=== PATIENT | female | born 1990 | race Two or more races ===

== ENCOUNTER 2018-11-21 13:05 | Emergency (ER) | payer OTHER ==
[2018-11-21 13:21] VITALS: BP 118/67
--- NOTE | 2018-11-21 14:31 | UC ---
Psychiatric Complaint HPI - HPI Summary HPI Summary: Ms. Gage presented to the emergency department with a complaint of 2-3 days of fevers, myalgias, arthralgias and sore throat. She did not get a flu vaccination. - History Of Current Complaint Chief Complaint: UCRespiratory Stated Complaint: VOMITING Time Seen by Provider: 11/21/18 13:25 Hx Last Menstrual Period: 11/08/18 - Allergies/Home Medications Allergies/Adverse Reactions: Allergies Allergy/AdvReac Type Severity Reaction Status Date / Time Penicillins Allergy Swelling Verified 11/21/18 13:21 Of Face,Lips,& Throat Home Medications: Home Medications Ibuprofen TAB* [Advil TAB*] 400 mg PO Q6HR PRN 11/21/18 [History Confirmed 11/21] PMH/Surg Hx/FS Hx/Imm Hx Previously Healthy: Yes Other History Of: Negative For: HIV, Hepatitis B, Hepatitis C, Anticoagulant Therapy - Surgical History Surgical History: None - Family History Known Family History: Positive: Cardiac Disease, Hypertension, Diabetes - Social History Alcohol Use: None Substance Use Type: None Smoking Status (MU): Current Every Day Smoker Type: Cigarettes Amount Used/How Often: 5 CIG/DAY Household Exposure Type: Cigarettes Review of Systems All Other Systems Reviewed And Are Negative: Yes Constitutional: Positive: Fever ENT: Positive: Sore Throat, Nasal Discharge Respiratory: Positive: Cough Physical Exam - Summary Physical Exam Summary: She is nontoxic in appearance with stable vital signs Triage Information Reviewed: Yes Appearance: Well-Appearing Vital Signs: Initial Vital Signs Temp 98.4 F 11/21/18 13:17 Pulse 74 11/21/18 13:17 Resp 16 11/21/18 13:17 BP 118/67 11/21/18 13:17 Pulse Ox 98 11/21/18 13:17 Vital Signs Reviewed: Yes ENT: Positive: Pharyngeal erythema, Nasal congestion, TM dull Neck: Positive: Supple, Nontender, No Lymphadenopathy Respiratory: Positive: Chest non-tender, Lungs clear, Normal breath sounds, No respiratory distress Cardiovascular: Positive: RRR Abdomen Description: Positive: Nontender Psych Complaint Course/Dx - Course Course Of Treatment: Ms. Gage the patient a viral syndrome. Her influenza swab was negative and she is out of the range for treatment at 3 days. I recommended symptomatic treatment and follow-up with anything changes. - Differential Dx/Diagnosis Provider Diagnosis: URI (upper respiratory infection) Discharge - Sign-Out/Discharge Documenting (check all that apply): Patient Departure All imaging exams completed and their final reports reviewed: No Studies - Discharge Plan Condition: Stable Disposition: HOME Prescriptions: Codeine Phosphate/Guaifenesin [Guaiatussin AC Liquid] 5 ml PO Q4HR #120 ml MDD 30 cc Patient Education Materials: Viral Syndrome (ED) Referrals: Emerson Jeffries MD [Primary Care Provider] - - Billing Disposition and Condition Condition: STABLE Disposition: Home
[2018-11-21 14:32] LABS: Influenza A Molecular NEGATIVE (Negative); Influenza B Molecular NEGATIVE (Negative)
== END 2018-11-21 14:30 | disposition home or self-care (01) ==
LOC: UCEAST 13:05
DX: J06.9 Acute upper respiratory infection, unspecified (principal); Z88.0 Allergy status to penicillin; F17.210 Nicotine dependence, cigarettes, uncomplicated
CPT/HCPCS: 99212; G0463

== ENCOUNTER 2019-02-12 12:35 | Emergency (ER) | payer OTHER ==
[2019-02-12 13:22] VITALS: BP 97/62
[2019-02-12] MEDS ORDERED: Ondansetron ODT TAB* 4 MG PO ONE (13:25)
--- NOTE | 2019-02-12 13:37 | UC ---
Throat Pain/Nasal Finesse HPI - HPI Summary HPI Summary: sore throat and sinus congestion since Wednesday, denies fevers. pt started vomiting on and off since yesterday - today vomited 6 times while at work. denies abdominal pain or diarrhea - History of Current Complaint Chief Complaint: UCGeneralIllness Stated Complaint: VOMITING SORE THROAT Time Seen by Provider: 02/12/19 13:24 Hx Obtained From: Patient Hx Last Menstrual Period: November - states she has irregular periods ?: No Onset/Duration: Sudden Onset, Lasting Days Severity: Severe Pain Intensity: 10 Associated Signs & Symptoms: Positive: Dysphagia, Vomiting - Allergies/Home Medications Allergies/Adverse Reactions: Allergies Allergy/AdvReac Type Severity Reaction Status Date / Time Penicillins Allergy Swelling Verified 02/12/19 13:22 Of Face,Lips,& Throat PMH/Surg Hx/FS Hx/Imm Hx Previously Healthy: Yes Other History Of: Negative For: HIV, Hepatitis B, Hepatitis C, Anticoagulant Therapy - Surgical History Surgical History: None - Family History Known Family History: Positive: Cardiac Disease, Hypertension, Diabetes - Social History Alcohol Use: None Substance Use Type: None Smoking Status (MU): Current Every Day Smoker Type: Cigarettes Amount Used/How Often: 5 CIG/DAY Household Exposure Type: Cigarettes Review of Systems All Other Systems Reviewed And Are Negative: Yes ENT: Positive: Sore Throat Gastrointestinal: Positive: Vomiting Neurological: Positive: Headache Is Patient Immunocompromised?: No Physical Exam Triage Information Reviewed: Yes Appearance: Well-Nourished, Ill-Appearing, Pain Distress Vital Signs: Initial Vital Signs Temp 98.8 F 02/12/19 13:18 Pulse 58 02/12/19 13:18 Resp 14 02/12/19 13:18 BP 97/62 02/12/19 13:18 Pulse Ox 99 02/12/19 13:18 Vital Signs Reviewed: Yes ENT: Positive: Pharyngeal erythema, Tonsillar swelling Throat Pain/Nasal Course/Dx - Course Course Of Treatment: hx obtained, exam performed ,meds reviewed, rapid strep obtained and was negative, rapid flu, zofran given, - Differential Dx/Diagnosis Differential Diagnosis/HQI/PQRI: Influenza, Otitis Media, Pharyngitis, Sinusitis , URI Provider Diagnosis: Nausea & vomiting, Pharyngitis Discharge - Sign-Out/Discharge Documenting (check all that apply): Patient Departure All imaging exams completed and their final reports reviewed: No Studies - Discharge Plan Condition: Stable Disposition: HOME Prescriptions: Albuterol HFA INHALER* [Ventolin HFA Inhaler*] 2 puff INH Q4H PRN #1 mdi PRN Reason: Cough Ondansetron ODT TAB* [Zofran 4 MG Odt TAB*] 4 mg PO Q8H PRN #12 tab.odt PRN Reason: Nausea Patient Education Materials: Pharyngitis (ED), Acute Nausea and Vomiting (ED) Forms: *Work Release Referrals: Emerson Jeffries MD [Primary Care Provider] - Additional Instructions: 1, take the medication as prescribed. 2. INcrease fluid intake and get plenty of rest. 3. follow up if not improved in the next week. 4. Your strep was negative. - Billing Disposition and Condition Condition: STABLE Disposition: Home - Attestation Statements Provider Attestation: I was available for consult. This patient was seen by the [facility]. The patient was not presented to , seen by or examined by [facility] -Rafi Torre MD
[2019-02-12 14:09] LABS: Influenza A Molecular NEGATIVE (Negative); Influenza B Molecular NEGATIVE (Negative)
== END 2019-02-12 14:20 | disposition home or self-care (01) ==
LOC: UCEAST 12:35
DX: J02.9 Acute pharyngitis, unspecified (principal); R11.2 Nausea with vomiting, unspecified; R09.81 Nasal congestion; F17.210 Nicotine dependence, cigarettes, uncomplicated; Z88.0 Allergy status to penicillin
CPT/HCPCS: 87651; 99212; A9270-GY; G0463

== ENCOUNTER 2019-06-03 21:01 | Emergency (ER) | payer OTHER ==
[2019-06-03 21:13] VITALS: BP 114/71
--- NOTE | 2019-06-03 21:20 | UC ---
Throat Pain/Nasal Finesse HPI - HPI Summary HPI Summary: 3 day history of sore throat, subjective fever and headache, with chills and body aches. Vomited x 2 today, last was about 2 hours ago, with report of persistent nausea. Has hx of recurrent strep in the past, last was several months ago. reviewed record: strep negative in January, RS not done in November. States that penicillin makes her tongue dark and gives her hives on her neck. - History of Current Complaint Chief Complaint: UCGeneralIllness Stated Complaint: FEVER, SORE THROAT, AND VOMITING Time Seen by Provider: 06/03/19 21:13 Hx Obtained From: Patient Hx Last Menstrual Period: 05/03 ?: No Onset/Duration: Gradual Onset, Lasting Days - 3 Pain Intensity: 9 Cough: Nonproductive Associated Signs & Symptoms: Positive: Dysphagia, Hoarseness, Vomiting - Epiglottits Risk Factors Epiglottis Risk Factors: Negative - Allergies/Home Medications Allergies/Adverse Reactions: Allergies Allergy/AdvReac Type Severity Reaction Status Date / Time Penicillins Allergy Swelling Verified 06/03/19 21:08 Of Face,Lips,& Throat PMH/Surg Hx/FS Hx/Imm Hx Previously Healthy: Yes Other History Of: Negative For: HIV, Hepatitis B, Hepatitis C, Anticoagulant Therapy - Surgical History Surgical History: None - Family History Known Family History: Positive: Cardiac Disease, Hypertension, Diabetes - Social History Occupation: Employed Full-time - [employer] Lives: With Family Alcohol Use: None Substance Use Type: None Smoking Status (MU): Current Every Day Smoker Type: Cigarettes Amount Used/How Often: 5 CIG/DAY Household Exposure Type: Cigarettes Review of Systems All Other Systems Reviewed And Are Negative: Yes Constitutional: Positive: Fever, Chills, Fatigue ENT: Positive: Sore Throat Respiratory: Positive: Cough Cardiovascular: Positive: Negative Gastrointestinal: Positive: Vomiting Genitourinary: Positive: Negative Neurological: Positive: Headache Is Patient Immunocompromised?: No Physical Exam Triage Information Reviewed: Yes Appearance: No Pain Distress, Ill-Appearing - congested, coughing, looks unwell Vital Signs: Initial Vital Signs Temp 98.5 F 06/03/19 21:04 Pulse 95 06/03/19 21:04 Resp 16 06/03/19 21:04 BP 114/71 06/03/19 21:04 Pulse Ox 99 06/03/19 21:04 Eyes: Positive: Conjunctiva Clear ENT: Positive: Pharyngeal erythema, Nasal congestion, Nasal drainage, Tonsillar swelling. Negative: Tonsillar exudate Neck: Positive: Supple, Nontender, Enlarged Nodes @ - tonsillar Respiratory: Positive: Lungs clear, Normal breath sounds Cardiovascular: Positive: RRR, No Murmur Abdominal Exam: Normal Abdomen Description: Positive: Nontender, No Organomegaly, Soft Musculoskeletal Exam: Normal Neurological Exam: Normal Psychological Exam: Normal Skin Exam: Normal Diagnostics - Laboratory Lab Results: rapid strep negative. Throat Pain/Nasal Course/Dx - Course Course Of Treatment: Clinical dx of tonsillitis, rapid strep negative. Rx for cephalexin given. - Differential Dx/Diagnosis Differential Diagnosis/HQI/PQRI: Tonsillitis, URI Provider Diagnosis: Tonsillitis Discharge - Sign-Out/Discharge Documenting (check all that apply): Patient Departure All imaging exams completed and their final reports reviewed: No Studies - Discharge Plan Condition: Stable Disposition: HOME Prescriptions: Cephalexin CAP* [Keflex 500 CAP*] 500 mg PO BID #20 cap Patient Education Materials: Tonsillitis (ED) Forms: *Work Release Referrals: Emerson Jeffries MD [Primary Care Provider] - Additional Instructions: You have been given a dose of ondansetron to decrease nausea. Your tonsillitis is being treated with cephalexin. Please take the complete course of it; stop should you develop rash or hives. - Billing Disposition and Condition Condition: STABLE Disposition: Home
[2019-06-03] MEDS ORDERED: Ondansetron ODT TAB* 4 MG PO ONE (21:30)
[2019-06-03] MEDS ORDERED: Cephalexin CAP* 500 MG PO ONE (21:30)
== END 2019-06-03 21:50 | disposition home or self-care (01) ==
LOC: UCEAST 21:01
DX: J03.90 Acute tonsillitis, unspecified (principal); F17.210 Nicotine dependence, cigarettes, uncomplicated; Z88.0 Allergy status to penicillin
CPT/HCPCS: 87651; 99212; A9270-GY; G0463